=== PATIENT | female | born 1970 | race Caucasian/White ===

== ENCOUNTER → 2017-10-27 | Outpatient (CLI) | payer BC, OTHER ==
--- NOTE | 2017-10-28 14:58 | RADIOLOGY IMAGING REPORT ---
[place] [facility] [place] ERIN ORTEGA : [id number] MR: [id number] V: [id number] EXAM DATE: [id number] ORDERING PHYSICIAN: REBEL YEH TECHNOLOGIST: Brenda Ayoub PROCEDURE:BILATERAL DIGITAL SCREENING MAMMOGRAM WITH CAD ASSISTED INTERPRETATION & 3D TOMOSYNTHESIS COMPARISON:Prior mammogram 04/18/13. INDICATIONS:SCREENING FINDINGS: Breast tissue demonstrates scattered fibroglandular tissue elements. There is no suspicious mass, calcification, or architectural distortion. DIAGNOSTIC CATEGORY 1--NEGATIVE. RECOMMENDATIONS: ROUTINE MAMMOGRAM AND CLINICAL EVALUATION. IMPRESSION: BIRADS 1: Negative. No mammographic evidence for malignancy. Dictated by: Denver Nelson M.D. on 10/28/2017 at 11:28 Transcribed by: REMINGTON on 10/28/2017 at 11:51 Approved by: Denver Nelson M.D. on 10/28/2017 at 14:57 [facility]
== END ==
LOC: MAMO 01:57
PROVIDERS: ATTEND Nurse Practitioner Family
DX: Z12.31 Encounter for screening mammogram for malignant neoplasm of breast (principal)
CPT/HCPCS: 77063; 77067